=== PATIENT | female | born 1995 | race Caucasian/White ===

== ENCOUNTER 2019-01-24 05:37 | Emergency (ER) | payer MEDICARE, MEDICAID ==
[~2019-01-24] VITALS: Ht 162.6 cm; Wt 105.7 kg
[2019-01-24] MEDS ORDERED: PROAIR HFA0.09 MG/AC IH (05:44)
[2019-01-24 06:23] LABS: HEMATOCRIT 43.1 % (37.0-47.0); MEAN CELL VOLUME 88 fl (78-100); MEAN CORPUSCULAR HEMOGLOBIN 29 pg (27-31); MEAN CORPUSCULAR HGB CONC 33 g/dL (33-37); MEAN PLATELET VOLUME 9.2 fl (7.4-10.4); PLATELET COUNT 296 K/mm3 (130-400); RED BLOOD COUNT 4.92 M/mm3 (4.10-5.30)
[2019-01-24 06:45] LABS: LYMPHOCYTE 13 % (20-51); MONOCYTE 12 % (3-10); NEUTROPHILS 72 % (42-75)
[2019-01-24 06:46] LABS: URINE APPEARANCE HAZY; URINE BILIRUBIN NEGATIVE (NEGATIVE); URINE BLOOD NEGATIVE (NEGATIVE); URINE COLOR YELLOW; URINE GLUCOSE NEGATIVE (NEGATIVE); URINE KETONE NEGATIVE (NEGATIVE); URINE LEUKOCYTE ESTERASE NEGATIVE (NEGATIVE); URINE NITRATE NEGATIVE (NEGATIVE); URINE PROTEIN(semi-quant) NEGATIVE (NEGATIVE); URINE UROBILINOGEN NORMAL (NORMAL)
[2019-01-24 06:47] LABS: URINE MUCUS PRESENT (NOT PRESENT)
[2019-01-24 08:18] LABS: TOTAL BILIRUBIN 0.7 mg/dL (0.2-1.2)
[2019-01-24 08:37] LABS: ALBUMIN 3.9 g/dL (3.5-5.0); CALCIUM 9.3 mg/dL (8.3-10.5); POTASSIUM 3.8 mmol/L (3.5-5.1); TOTAL PROTEIN 6.8 g/dL (6.4-8.3)
[2019-01-24] MEDS ORDERED: GOOD NEIGHBOR P20 M1 PO (08:58)
[2019-01-24] MEDS ORDERED: ZOFRAN ODT4 MG PO (08:58)
[2019-01-24 09:13] VITALS: BP 146/61
== END 2019-01-24 09:13 | disposition home or self-care (01) ==
LOC: ED 05:37
PROVIDERS: Family Medicine
DX: K92.0 Hematemesis (principal); J45.909 Unspecified asthma, uncomplicated; F17.210 Nicotine dependence, cigarettes, uncomplicated
CPT/HCPCS: J2405; J3490

== ENCOUNTER 2020-02-01 11:58 | Emergency (ER) | payer MEDICARE, MEDICAID ==
[~2020-02-01 11:58] MED LIST: GOOD NEIGHBOR P20 M1 PO; PROAIR HFA0.09 MG/AC IH; ZOFRAN ODT4 MG PO
[2020-02-01] MEDS ORDERED: KENALOG DENTAL P5 GM DT (12:03)
[2020-02-01 14:05] VITALS: BP 139/70
== END 2020-02-01 14:05 | disposition home or self-care (01) ==
LOC: ED 11:58
DX: S91.115A Laceration without foreign body of left lesser toe(s) without damage to nail, initial encounter (principal); W26.8XXA Contact with other sharp object(s), not elsewhere classified, initial encounter
CPT/HCPCS: 90714

== ENCOUNTER → 2020-03-28 | Outpatient (CLI) | payer MEDICARE, MEDICAID ==
[~2020-03-28] MED LIST changes: +KENALOG DENTAL P5 GM DT
[2020-03-28 11:52] LABS: HEMATOCRIT 46.4 % (37.0-47.0); RED BLOOD COUNT 5.28 M/mm3 (4.10-5.30); RED CELL DISTRIBUTION WIDTH 13.6 % (11.5-14.5); WHITE BLOOD COUNT 16.1 K/mm3 (4.8-10.8)
[2020-03-28 12:00] LABS: ALBUMIN 4.5 g/dL (3.5-5.0); POTASSIUM 3.9 mmol/L (3.5-5.1)
[2020-03-28 12:01] LABS: CALCIUM 9.2 mg/dL (8.3-10.5)
[2020-03-28 12:02] LABS: TOTAL PROTEIN 7.6 g/dL (6.4-8.3)
[2020-03-28 12:04] LABS: TOTAL BILIRUBIN 0.6 mg/dL (0.2-1.2)
== END ==
LOC: LAB 11:23
PROVIDERS: Family Medicine
DX: Z13.21 Encounter for screening for nutritional disorder (principal); Z13.228 Encounter for screening for other metabolic disorders; E66.01 Morbid (severe) obesity due to excess calories